=== PATIENT | male | born 1955 | race Caucasian/White ===

== ENCOUNTER 2019-02-28 21:58 | Emergency (ER) | payer MEDICAID ==
[~2019-02-28] VITALS: Ht 175.3 cm; Wt 84.0 kg
--- NOTE | 2019-02-28 22:00 | NUR ---
BREAK RN FOR PRIMARY RN TIGIST. BIB AMBULANCE FOR ETOH INTOXICATION. EMS CALLED TO SCENE BY [facility] FOR INTOXICATION, BREATHALYZER ON SCENE 0.228 AND PT REPORTEDLY UNABLE TO AMBULATE ON SCENE PER EMS. PT DENIES ANY PAIN, CP, SOB, HITTING HEAD OR LOC. STATES "DRANK 4 OR FEW MORE BEERS THIS EVENING AND I'M HERE BECAUSE I NEED MY BACLOFEN, IT GOT STOLEN A FEW DAYS AGO WITH MY BACKPACK AND MY ELIQUIS." PT ORIENTED TO SELF, , EVENT, PRESIDENT, UNABLE TO RECALL PLACE, ABLE TO PROVIDED MEDICAL HISTORY AND MEDICATIONS HE IS CURRENTLY TAKING. CONT PULSE OX, BP, CARDIAC MONITORS APPLIED. SR ON MONITOR. VSS. DR. NARANJO AT BEDSIDE FOR EVALUATION. CALL LIGHT IN REACH. FALL PRECAUTIONS IN PLACE. NEURO AND CMS INTACT. ASSESSMENT COMPLETED.
--- NOTE | 2019-02-28 22:23 | NUR ---
PT IN CT
[2019-02-28] MEDS ORDERED: BACLOFEN 10 MG TABLET PO ONE (22:30)
--- NOTE | 2019-02-28 22:36 | NUR ---
BEDSIDE REPORT AND CARE TO TIGIST WHITE. PT REMAINS IN CT.
[2019-02-28] MEDS ORDERED: BACL20TA PO (22:38)
[2019-02-28] MEDS ORDERED: APIX2.5T PO (22:38)
--- NOTE | 2019-02-28 22:49 | NUR ---
PT MEDICATED PER ORDERS. ALERT, SOMEWHAT SCATTERED SPEECH. RV'WD POC WITH PT.
[2019-02-28 22:55] LABS: ALBUMIN 3.4 g/dL (3.4-5.0); ANION GAP 11 mmol/L (5-15); CALCIUM 8.3 mg/dL (8.5-10.1); CHLORIDE 101 mmol/L (98-107); CREATININE 1.21 mg/dL (0.7-1.3)
[2019-02-28 22:59] LABS: BASOPHILS # (AUTO) 0.04 x10^3/uL (0-0.1); BASOPHILS % (AUTO) 0 % (0-1); EOSINOPHILS # (AUTO) 0.21 x10^3/uL (0-0.4); EOSINOPHILS % (AUTO) 2 % (1-7); LYMPHOCYTES # (AUTO) 2.65 x10^3/uL (1-3.4); LYMPHOCYTES % (AUTO) 25 % (22-44); MD NO; MEAN CORPUSCULAR HEMOGLOBIN 31.1 pg (27.5-34.5); MEAN CORPUSCULAR HGB CONC 32.6 g/dL (33.2-36.2); MEAN CORPUSCULAR VOLUME 95.3 fL (81-97); MEAN PLATELET VOLUME 10.2 fL (7.4-10.4); MONOCYTES # (AUTO) 0.81 x10^3/uL (0.2-0.8); MONOCYTES % (AUTO) 8 % (2-9); NEUTROPHILS # (AUTO) 7.08 x10^3/uL (1.8-6.8); NEUTROPHILS % (AUTO) 66 % (42-75); PLATELET COUNT 124 x10^3/uL (130-400); RED BLOOD COUNT 4.66 x10^6/uL (4.38-5.82); RED CELL DISTRIBUTION WIDTH 14.8 % (9.4-14.8)
--- NOTE | 2019-02-28 23:01 | NUR ---
BLANKET AND NEW SOCKS PROVIDED TO PT.
--- NOTE | 2019-03-01 00:12 | NUR ---
PT AMBULATED TO BR WITH 1 PERSON ASSIST.
[2019-03-01 00:20] VITALS: BP 116/80
--- NOTE | 2019-03-01 00:52 | NUR ---
D/C INSTRUCTIONS, MEDS & F/U APPT RV'WD WITH PT. RX GIVEN X2. PT AMBULATED OUT OF ED WITH STAND BY ASSIST. DECLINED CAB VOUCHER. STATES HE WILL CALL HIS SISTER.
== END 2019-03-01 00:55 | disposition home or self-care (01) ==
LOC: ED 23:23
DX: F10.220 Alcohol dependence with intoxication, uncomplicated (principal); R53.1 Weakness; F17.200 Nicotine dependence, unspecified, uncomplicated; Z76.0 Encounter for issue of repeat prescription; W18.39XA Other fall on same level, initial encounter; Y93.89 Activity, other specified; Y92.89 Other specified places as the place of occurrence of the external cause; Y99.8 Other external cause status
CPT/HCPCS: 36415; 70450; 80048; 82040; 85025; 93005; 99284

== ENCOUNTER 2019-03-07 20:21 | Emergency (ER) | payer MEDICAID ==
[~2019-03-07] VITALS: Ht 170.2 cm; Wt 105.0 kg
[~2019-03-07 20:21] MED LIST: APIX2.5T PO; BACL20TA PO
[2019-03-07 20:27] VITALS: BP 125/74
--- NOTE | 2019-03-07 21:22 | NUR ---
PT ASLEEP ERP TO BEDSIDE AND AWAITING PT ABILITY TO WALK WITH STEADY GATE FOR DC FROM ED.
== END 2019-03-07 23:02 | disposition home or self-care (01) ==
LOC: ED 22:51
DX: F10.220 Alcohol dependence with intoxication, uncomplicated (principal); Y90.9 Presence of alcohol in blood, level not specified
CPT/HCPCS: 99283

== ENCOUNTER 2019-06-15 20:33 | Emergency (ER) | payer MEDICAID ==
[~2019-06-15] VITALS: Ht 177.8 cm; Wt 75.0 kg
[2019-06-15] MEDS ORDERED: ZIPRASIDONE 20 MG INJ IM ONE ×2 (20:46→21:00)
--- NOTE | 2019-06-15 21:04 | NUR ---
SEE TRIAGE NOTE. PT CONTINUES TO ROLL AROUND ON [place], YELLING OUT FREQUENTLY "OW", "NO", AND SPELLS OUT HIS NAME REPEATEDLY. CALL LIGHT WITHIN REACH. Addendum: 06/15/19 at 2128 by DYLON SITTER IN ROOM FOR CLOSE OBS.
--- NOTE | 2019-06-15 21:28 | NUR ---
PT SLEEPING AT THIS TIME. SITTER IN ROOM.
--- NOTE | 2019-06-15 21:56 | NUR ---
PT MOVED TO ROOM 18. PULSE OX AND BP CUFF IN PLACE. BP READING 71/34, O2 SAT RANGING FROM 86-91%. OXYGEN PLACED AT 2 LITERS VIA NC WITH SAT IMPROVING TO 98%. IV NS INFUSING. BP NOW 77/40. ERP NOTIFIED. REPORT TO YONI WHITE.
--- NOTE | 2019-06-15 22:06 | NUR ---
PT AWAKEN VERBAL, LAYED FLAT TO OBTAIN 12 LEAD. REMAINS SOMNOLENTSTATES THAT HE DRANK TOO MUCH
[2019-06-15] MEDS ORDERED: SODIUM CHLORIDE 0.9% 1,000 ML IV ONE (22:30)
--- NOTE | 2019-06-15 23:31 | NUR ---
AWAKEN VERBAL, REMAINS O2 DEPENDANT AT THIS TIME. WHEN TAKES OFF, SPO2 IN THE 70'S. NSR MONITOR WITHOUT ECTOPY AT THIS TIME.
--- NOTE | 2019-06-16 01:45 | NUR ---
PT MOANING, STATES THAT HE HAS A BACK BACK, IS AWARE THAT HE IS AT [place], AWARE THAT IT IS MAY. STATES THAT HE FELL DOWN ONE MONTH AGO AND HIS BACK IS STILL HURTING. PT DIFFICULTTO FOCUS, TURN PT ON SIDE FOR POSITIONING, REPORTS THAT IT IS SLIGHTLY BETTER AFTER TURNING. WAS ASSISTED WITH VOIDING BY MALE NURSE.
--- NOTE | 2019-06-16 04:14 | NUR ---
PT SLEEPING. NO CHANGES.
--- NOTE | 2019-06-16 04:55 | NUR ---
PT AWAKE AND REQUESTING TO LEAVE. PA INFORMED.
[2019-06-16 04:56] VITALS: BP 143/88
--- NOTE | 2019-06-16 05:05 | NUR ---
PT GIVEN WATER PER REQUEST. PT DECLINED TAXI VOUCHER
== END 2019-06-16 05:30 | disposition home or self-care (01) ==
LOC: ED 21:32
DX: F10.120 Alcohol abuse with intoxication, uncomplicated (principal); G89.29 Other chronic pain; M54.5 Low back pain; R41.82 Altered mental status, unspecified; Z72.9 Problem related to lifestyle, unspecified
CPT/HCPCS: 36415; 72131; 80307; 93005; 96360; 96372; 99284; J3486; J7030